=== PATIENT | female | born 1955 | race Caucasian/White ===

== ENCOUNTER 2018-03-04 10:08 | Day surgery (SDC) | payer BC ==
[2018-03-03 14:35] VITALS: BMI 31.1
[2018-03-04] MEDS ORDERED: Heparin 5,000 UNITS/ML VIAL ONE (10:51)
[2018-03-04] MEDS ORDERED: Gentamicin 80 MG/2 ML VIAL ONE (11:04)
[2018-03-04] MEDS ORDERED: Bupivacaine/Epinephrine 0.25% 30 ML VIAL ONE (11:04)
[2018-03-04] MEDS ORDERED: Sodium Chloride 0.9% 10 ML ONE ×2 (11:04→11:54)
[2018-03-04] MEDS ORDERED: EPINEPHrine 1 MG/ML AMP ONE (11:04)
[2018-03-04] MEDS ORDERED: Lidocaine 1% (PF) 30 ML VIAL ONE (11:04)
[2018-03-04] MEDS ORDERED: Fentanyl 250 MCG/5 ML VIAL ONE (11:06)
[2018-03-04] MEDS ORDERED: CEFAZOLIN/Water 2 GM/20 ML SYRINGE ONE (12:25)
[2018-03-04] MEDS ORDERED: Famotidine/PF 20 mg/2ml Vial ONE (12:35)
[2018-03-04] MEDS ORDERED: Ondansetron HCl/PF 4 MG/2 ML Vial ONE (13:20)
[2018-03-04] MEDS ORDERED: Dexamethasone 20 MG/5 ML VIAL ONE (13:20)
[2018-03-04] MEDS ORDERED: Lidocaine 1% PF 5 ML VIAL ONE (13:20)
[2018-03-04] MEDS ORDERED: PHENYLEPHRINE-NS 100 MCG/ML 10 ML SYRINGE ONE (13:20)
[2018-03-04] MEDS ORDERED: PROPOFOL 200 MG/20 ML VIAL ONE (13:20)
[2018-03-04] MEDS ORDERED: ePHEDrine/0.9% NaCl/PF SYRINGE 50 mg/10 ml ONE (13:20)
[2018-03-04] MEDS ORDERED: HYDROcodone/Acetaminophen 5/325 mg Tablet ONE (18:19)
--- NOTE | 2018-03-07 14:52 | OP ---
DATE OF SURGERY: 03/04/2018 PREOPERATIVE DIAGNOSIS: Macromastia. POSTOPERATIVE DIAGNOSIS: Macromastia. PROCEDURE: Bilateral breast reduction. PROCEDURE IN DETAIL: Following induction of adequate anesthesia, the patient was prepped and draped in the usual sterile fashion in the supine position. Attention was first turned to the right breast. Modified Robles-pattern breast reduction had been preoperatively planned. The nipple was circumcised a round a 42-mm nipple sizer with the inferior pole of the breast being de-epithelialized. Skin flaps were then raised superiorly, medially, and laterally. Dermoglandular units were then resected superi raiza, medially, and laterally sculpting the pedicle to protect viability and sensibility. After this had been satisfactorily done, the inverted T was closed with 3-0 PDS suture and 3-0 Monocryl suture, bringing out the nipple through a 42 mm nipple defect. All carlson were copiously irrigated and insp ected for meticulous hemostasis prior to closure. A similar procedure was done on each side.
== END 2018-03-04 18:50 | disposition home or self-care (01) ==
LOC: SDC 10:08
PROVIDERS: ATTEND Plastic Surgery
PROC: 0HBV0ZZ Excision of Bilateral Breast, Open Approach (ICD-10-PCS; principal; 2018-03-04)
DX: N60.21 Fibroadenosis of right breast (principal); N60.92 Unspecified benign mammary dysplasia of left breast; K21.9 Gastro-esophageal reflux disease without esophagitis; Z79.899 Other long term (current) drug therapy; Z88.0 Allergy status to penicillin; Z88.1 Allergy status to other antibiotic agents; Z88.8 Allergy status to other drugs, medicaments and biological substances
CPT/HCPCS: 88305; A4216; J0171; J1100; J1580; J1644; J2001; J2405; J2704; J3010; J3370; J3490; S0028

== ENCOUNTER 2018-03-10 15:44 | Day surgery (SDC) | payer BC ==
--- NOTE | 2018-03-10 14:51 | HP ---
CHIEF COMPLAINT: Hematoma. HISTORY OF PRESENT ILLNESS: The patient is a 62-year-old female one-week status post breast reductio n. This morning, she got up and was reaching for something in the bathroom when she felt something t ear at the bottom part of her left breast. She then noticed a sudden change in size of her left alex st accompanied with some discomfort. She presented to clinic for evaluation. Patient appears to hav e a hematoma on her left side. PAST MEDICAL HISTORY: Significant for reflux. PAST SURGICAL HISTORY: Laparoscopy in 1982, knee surgery in 1984. ALLERGIES: PENICILLIN, SELDANE and MACROBID. SOCIAL HISTORY: The patient is . Drinks alcohol socially and denies tobacco use. FAMILY HISTORY: Significant for colon cancer, diabetes, high cholesterol, obesity, and skin cancer. REVIEW OF SYSTEMS: As above with some swelling in her feet, heartburn, reflux, and slow wound healin g. PHYSICAL EXAMINATION: VITAL SIGNS: The patient is 5 foot 7 and weighs 206 pounds. GENERAL: This is a well-nourished, well-developed white female who is in no apparent distress. LUNGS: Clear to auscultation bilaterally. HEART: Regular rate and rhythm. No murmurs, rubs or gallops. BREAST: Her right breast is healing well. The nipple appears viable. The left breast nipple appear s viable, but the left breast is significantly bigger than the last visit and bigger than the right s katty. ASSESSMENT: Postoperative hematoma one week after surgery from insignificant trauma or activity. PLAN: The patient was explained at length we will do her surgery after she has been n.p.o. at adequa te amount of time. She has been instructed as to be in n.p.o. until surgery.
[~2018-03-10 15:44] MED LIST: Dexamethasone 20 MG/5 ML VIAL ONE; Lidocaine 1% PF 5 ML VIAL ONE; Ondansetron HCl/PF 4 MG/2 ML Vial ONE; PROPOFOL 200 MG/20 ML VIAL ONE
[2018-03-10] MEDS ORDERED: Bupivacaine/Epinephrine 0.25% 30 ML VIAL ONE (16:06)
[2018-03-10] MEDS ORDERED: Sodium Chloride 0.9% 0 ML ONE (16:06)
[2018-03-10] MEDS ORDERED: Gentamicin 80 MG/2 ML VIAL ONE (16:06)
[2018-03-10] MEDS ORDERED: Fentanyl 100 MCG/2 ML VIAL ONE ×2 (16:32→19:26)
[2018-03-10] MEDS ORDERED: Midazolam HCl 2 mg/2 ml Vial ONE (16:32)
[2018-03-10] MEDS ORDERED: CEFAZOLIN/Water 2 GM/20 ML SYRINGE ONE (16:33)
[2018-03-10] MEDS ORDERED: Scopolamine 1.5 mg/72 hour Patch ONE (16:33)
[2018-03-10] MEDS ORDERED: Heparin 5,000 UNITS/ML VIAL ONE (16:34)
[2018-03-10 16:57] LABS: #Eosinphils 0.1 thou/uL (0.0-0.7); #Lymphocytes 2.1 thou/uL (1.20-3.40); #Monocytes 0.9 thou/uL (0.11-0.59); #Neutrophils 12.8 thou/uL (1.40-6.50); %Eosinophils 0.5 % (0.0-10.0); %Lymphocytes 13.2 % (21.0-51.0); %Monocytes 5.4 % (0.0-10.0); %Neutrophils 80.9 % (42.0-75.0); Hemoglobin 13.3 g/dL (12.0-16.0); Mean Corpuscular HGB CONC 33.5 g/dL (32.0-36.0); Mean Corpuscular Hemoglobin 28.6 pg (27.0-31.0); Mean Corpuscular Volume 85.3 fl (81.0-99.0); Mean Platelet Volume 7.3 fL (7.4-10.4); Platelet Count 306 thou/uL (130-400); RBC Distribution Width 12.2 % (11.5-14.5); Red Blood Cell (RBC) Count 4.65 mill/uL (4.20-5.40); White Blood Cell (WBC) Count 15.8 thou/uL (4.8-10.8)
--- NOTE | 2018-03-11 15:42 | OP ---
DATE OF PROCEDURE: 03/10/2018 PREOPERATIVE DIAGNOSIS: Left breast hematoma. POSTOPERATIVE DIAGNOSIS: Left breast hematoma. PROCEDURE: Evacuation of postoperative hematoma status post breast reduction. OPERATIVE FINDINGS: 300 mL of blood clot on the left. PROCEDURE IN DETAIL: Following induction of adequate anesthesia, the patient was prepped and draped in usual sterile fashion in the supine position. The left rasp, a modified Robles-pattern was opened. Hematoma was identified and evacuated. The field was copiously irrigated and inspected for meticulo us hemostasis. No distinct bleeder was identified. The patient given history of the breast fairly s uddenly swelling and then stopping presumably a tamponade. The exact source of the bleeding was neve r identified. Everything suspicious was addressed with cautery. After the field was copiously irrig ated and inspected for meticulous hemostasis, it was again irrigated with a dilute TXA solution which is allowed to sit for drainage. The prior closure was reperformed 3-0 PDS suture and 3-0 Monocryl s uture. The patient tolerated the procedure well.
== END 2018-03-10 20:45 | disposition home or self-care (01) ==
LOC: SDC 15:44
PROVIDERS: ATTEND Plastic Surgery
PROC: 0HCU0ZZ Extirpation of Matter from Left Breast, Open Approach (ICD-10-PCS; principal; 2018-03-10)
DX: L76.32 Postprocedural hematoma of skin and subcutaneous tissue following other procedure (principal); Z88.0 Allergy status to penicillin; Z88.8 Allergy status to other drugs, medicaments and biological substances
CPT/HCPCS: 36415; 85025; 96374; A4216; J0131; J1100; J1580; J1644; J2001; J2250; J2405; J2704; J3010; J3370; J3490

== ENCOUNTER 2019-04-21 15:55 | Outpatient (CLI) | payer BC ==
--- NOTE | 2019-04-21 16:36 | MMO ---
Bilateral MAMMO Bilat Screen [facility]. CLINICAL HISTORY: Patient is 63 years old and is seen for screening. The patient has no family history of breast cancer. The patient has a history of other cancer in 2004. The patient has a history of bilateral Breast reduction in March, - benign and left Ultrasound Guided Core Biopsy in October, - benign. VIEWS: The views performed were: bilateral craniocaudal with tomosynthesis; bilateral mediolateral oblique with tomosynthesis; and bilateral exaggerated craniocaudal. FILMS COMPARED: The present examination has been compared to prior imaging studies performed at [facility] on 10/11/2009, 03/24/2011, 08/16/2015 and 05/07/2017. MAMMOGRAM FINDINGS: There are scattered fibroglandular densities. Finding 1: There are fat containing, round masses with circumscribed margins seen in both breasts. Finding 2: There is a stable oval mass with circumscribed margins seen in the lower-inner region of the left breast. Finding 3: There are amorphous or indistinct calcifications seen in the anterior upper-outer region of the right breast. Finding 4: There are stable benign appearing calcifications seen in both breasts. IMPRESSION: FINDING 1: MASSES IN BOTH BREASTS ARE BENIGN. EVIDENCE FOR FAT NECROSIS. FINDING 2: STABLE MASS IN THE LEFT BREAST IS BENIGN. FINDING 3: AMORPHOUS OR INDISTINCT CALCIFICATIONS IN THE RIGHT BREAST REQUIRE ADDITIONAL EVALUATION. ADDITIONAL PROJECTIONS (RIGHT CRANIOCAUDAL SPOT COMPRESSION MAGNIFICATION; RIGHT MEDIOLATERAL OBLIQUE SPOT COMPRESSION MAGNIFICATION; AND RIGHT MEDIOLATERAL) ARE RECOMMENDED. FINDING 4: STABLE BENIGN APPEARING CALCIFICATIONS IN BOTH BREASTS ARE BENIGN. THE RESULTS OF THIS EXAM WERE SENT TO THE PATIENT. ACR BI-RADS Category 0 - Incomplete: Need additional imaging evaluation. [facility] will notify the patient of the need for additional imaging services. MAMMOGRAPHY NOTE: 1. A negative mammogram report should not delay a biopsy if a dominant of clinically suspicious mass is present. 2. Approximately 10% to 15% of breast cancers are not detected by mammography. 3. Adenosis and dense breasts may obscure an underlying neoplasm. Reported by: JAIMIE POWER MD Electonically Signed: [id number]
== END 2019-04-21 15:56 | disposition home or self-care (01) ==
LOC: BICMAMMO 15:55
PROVIDERS: ATTEND Family Medicine
DX: Z12.31 Encounter for screening mammogram for malignant neoplasm of breast (principal); R92.1 Mammographic calcification found on diagnostic imaging of breast
CPT/HCPCS: 77063; 77067

== ENCOUNTER 2019-04-25 14:08 | Outpatient (CLI) | payer BC ==
--- NOTE | 2019-04-25 14:52 | MMO ---
Right Breast MAMMO Unilat Diag [facility]. CLINICAL HISTORY: Patient is 63 years old and is seen for additional evaluation requested from prior study. The patient has no family history of breast cancer. The patient has a history of other cancer in 2004. The patient has a history of bilateral Breast reduction in March, - benign and left Ultrasound Guided Core Biopsy in October, - benign. VIEWS: The views performed were: right craniocaudal spot compression magnification; right mediolateral oblique spot compression magnification; right mediolateral spot compression magnification; and right mediolateral with tomosynthesis. FILMS COMPARED: The present examination has been compared to prior imaging studies performed at [facility] on 03/24/2011, 08/16/2015, 05/07/2017 and 04/21/2019. MAMMOGRAM FINDINGS: There are amorphous or indistinct calcifications with grouped or clustered distribution seen in the right breast. IMPRESSION: CALCIFICATIONS IN THE RIGHT BREAST ARE SUSPICIOUS. A STEREOTACTIC BREAST BIOPSY IS RECOMMENDED. FINDINGS DISCUSSED WITH DR. INGRID GILMORE'S NURSE ON 04/25/19 AT 14:49 HOURS. THE RESULTS OF THIS EXAM WERE SENT TO THE PATIENT. ACR BI-RADS Category 4 - Suspicious abnormality - biopsy should be considered MAMMOGRAPHY NOTE: 1. A negative mammogram report should not delay a biopsy if a dominant of clinically suspicious mass is present. 2. Approximately 10% to 15% of breast cancers are not detected by mammography. 3. Adenosis and dense breasts may obscure an underlying neoplasm. Reported by: CAIO HEIN MD Electonically Signed: [id number]
== END 2019-04-25 14:09 | disposition home or self-care (01) ==
LOC: BICMAMMO 14:08
PROVIDERS: ATTEND Family Medicine
DX: R92.1 Mammographic calcification found on diagnostic imaging of breast (principal); Z85.89 Personal history of malignant neoplasm of other organs and systems; Z98.82 Breast implant status; Z91.89 Other specified personal risk factors, not elsewhere classified
CPT/HCPCS: G0279

== ENCOUNTER 2019-06-16 13:21 | Outpatient (CLI) | payer BC ==
[2019-06-16 14:01] LABS: #Basophils 0.1 thou/uL (0.0-0.2); #Eosinphils 0.3 thou/uL (0.0-0.7); #Lymphocytes 2.9 thou/uL (1.20-3.40); #Monocytes 0.4 thou/uL (0.11-0.59); #Neutrophils 3.8 thou/uL (1.40-6.50); %Lymphocytes 38.7 % (21.0-51.0); %Monocytes 5.5 % (0.0-10.0); %Neutrophils 50.9 % (42.0-75.0); Hemoglobin 14.5 g/dL (12.0-16.0); Mean Corpuscular HGB CONC 32.4 g/dL (32.0-36.0); Mean Corpuscular Hemoglobin 27.4 pg (27.0-31.0); Mean Corpuscular Volume 84.6 fL (78.0-98.0); Mean Platelet Volume 8.2 fL (7.4-10.4); Platelet Count 241 thou/uL (130-400); RBC Distribution Width 12.5 % (11.5-14.5); Red Blood Cell (RBC) Count 5.27 mill/uL (4.20-5.40); White Blood Cell (WBC) Count 7.4 thou/uL (4.8-10.8)
[2019-06-16 14:22] LABS: Anion Gap 15 mmol/L (10-20); BUN (Urea Nitrogen) 15 mg/dL (9.8-20.1); Calc. Creatinine Clearance 0 mL/min (70-130); Calcium 9.8 mg/dL (7.8-10.44); Carbon Dioxide 22 mmol/L (23-31); Chloride 106 mmol/L (98-107); Estimated GFR-MDRD 51; Glucose 135 mg/dL (80-115); Potassium 4.1 mmol/L (3.5-5.1); Sodium 139 mmol/L (136-145)
== END 2019-06-16 13:22 | disposition home or self-care (01) ==
LOC: LABBT 13:21
PROVIDERS: ATTEND Specialist
DX: Z01.812 Encounter for preprocedural laboratory examination (principal)
CPT/HCPCS: 80048; 85025

== ENCOUNTER 2019-06-20 06:59 | Day surgery (SDC) | payer BC ==
[2019-06-16 13:31] VITALS: BMI 28.1
[2019-06-20] MEDS ORDERED: Ketorolac Tromethamine 30 MG/ML VIAL ONE (07:53)
--- NOTE | 2019-06-20 08:01 | MMO ---
Needle localization with mammographic guidance: 06/20/2019 HISTORY: 63-year-old female presenting prior to excisional biopsy for needle localization of microcal cifications and postbiopsy clip within the right breast FINDINGS: Informed consent obtained prior to the procedure. Microcalcifications and postbiopsy clip localized in the CC projection in the lateral retroareolar re gion. Overlying skin prepped and draped in normal sterile fashion. Skin was anesthetized with 1% buffered lidocaine. 5 cm [place] needle was advanced and locked into place. Proper location is confirme d with CC and ML imaging. The localization needle is immediately adjacent to the post biopsy clip and the needle traverses the calcifications. The post biopsy clip is within 1.5-2 cm of the distal ti p of the localization needle. The needle localization wire were secured in place and the patient was sent to surgery for excisional biopsy. IMPRESSION: Successful needle localization of right breast prior to excisional biopsy as detailed dina palafox.
[2019-06-20] MEDS ORDERED: Levofloxacin 500 mg/D5W 100 ml Premix Bag ONE (10:01)
[2019-06-20] MEDS ORDERED: Bupivacaine/Epinephrine 0.25% 30 ML VIAL ONE (10:35)
[2019-06-20] MEDS ORDERED: Fentanyl 100 MCG/2 ML VIAL ONE (10:36)
--- NOTE | 2019-06-20 11:58 | MMO ---
Specimen radiograph: 06/20/2019 HISTORY: Excisional biopsy right breast FINDINGS: The specimen radiograph contains the localization wire as well as the localized postbiopsy clip and the localized microcalcifications. IMPRESSION: Assessment radiograph as above.
[2019-06-20] MEDS ORDERED: HYDROcodone/Acetaminophen 5/325 mg Tablet ONE (13:24)
[2019-06-20] MEDS ORDERED: Ondansetron PF 4 MG/2 ML Vial ONE (16:15)
[2019-06-20] MEDS ORDERED: PROPOFOL 200 MG/20 ML VIAL ONE (16:15)
[2019-06-20] MEDS ORDERED: Dexamethasone 20 MG/5 ML VIAL ONE (16:15)
[2019-06-20] MEDS ORDERED: ePHEDrine 50 MG/ML VIAL ONE (16:15)
[2019-06-20] MEDS ORDERED: Lidocaine 1% PF 5 ML VIAL ONE (16:15)
--- NOTE | 2019-06-21 12:00 | OP ---
DATE OF PROCEDURE: 06/20/2019 PREOPERATIVE DIAGNOSIS: Right breast ductal carcinoma in situ. POSTOPERATIVE DIAGNOSIS: Right breast ductal carcinoma in situ. PROCEDURE PERFORMED: Right breast needle localized lumpectomy. ANESTHESIA: General endotracheal. INDICATIONS: The patient is a 63-year-old white female. She recently underwent biopsy of concerning microcalcifications of the right breast, which revealed ductal carcinoma in situ. Unfortunately, these calcifications are located immediately below the nipple-areolar complex. After discussing options for further treatment with her, she has elected to attempt a needle localized lumpectomy, recognizing the possibility of both positive margins as well as nipple viability compromise. Additionally, she has had a prior breast reduction mastopexy and therefore has a circumareolar incision that could complicate the outcome. DESCRIPTION OF OPERATION: Informed consent was obtained. The patient was taken to the operating room, where general anesthesia was obtained with the patient in the supine position. Needle localization had been performed prior to the surgery with the needle entering the superior aspect of the nipple-areolar complex and extended inferiorly underneath the lateral aspect of the areola. The breast and localizing needle were prepped with ChloraPrep and draped in sterile fashion. Local anesthetic was infiltrated using 0.25% Marcaine with epinephrine. A circumareolar incision was created around the lateral aspect of the areola. Dissection was carried through skin and subcutaneous tissue. Dissection was carried superiorly to identify the needle insertion. The needle was then removed, and the wire was replaced to the incision. The breast tissue into which the wire entered was grasped with Allis clamps and dissected. I dissected in such a fashion as to remove all of the concerning glandular tissue from beneath the areola and still obtained a wide core of tissue around the localizing wire. The specimen was removed intact. It was oriented with several sutures and passed off the field to Pathology. This revealed microcalcifications and the clip present within the specimen. Meticulous hemostasis was obtained. The wound was closed in layers with 3-0 and 4-0 Monocryl. Dermabond was placed externally. Additional local anesthetic was infiltrated under the incision. The patient tolerated the procedure well and was taken to Recovery in stable condition. Job ID: [id number]
== END 2019-06-20 13:40 | disposition home or self-care (01) ==
LOC: SDC 06:59
PROVIDERS: ATTEND Specialist
PROC: 0HBT0ZX Excision of Right Breast, Open Approach, Diagnostic (ICD-10-PCS; principal; 2019-06-20)
DX: D05.11 Intraductal carcinoma in situ of right breast (principal); K21.9 Gastro-esophageal reflux disease without esophagitis; Z79.899 Other long term (current) drug therapy; Z88.0 Allergy status to penicillin; Z88.1 Allergy status to other antibiotic agents; Z88.8 Allergy status to other drugs, medicaments and biological substances
CPT/HCPCS: 19281; 76098; 88307; 88342; J0131; J1885; J1956; J3010